=== PATIENT | female | born 1950 | race Caucasian/White ===

== ENCOUNTER 2017-09-12 12:08 | Emergency (ER) | payer BC, MEDICARE ==
--- NOTE | 2017-09-12 14:32 | RAD ---
PA AND LATERAL CHEST RADIOGRAPH: Date: 09-12-17 History: Cough, shortness of breath. Comparison: 07-08-15 FINDINGS: Cardiac silhouette and pulmonary vasculature are within normal limits. The lungs are clear. Degenerat aaron changes are seen in the spine. There has been no interval change from prior exam. IMPRESSION: No acute cardiopulmonary process. POS: [facility]
== END 2017-09-12 14:22 | disposition home or self-care (01) ==
LOC: ERS 12:08
DX: J20.9 Acute bronchitis, unspecified (principal); E78.5 Hyperlipidemia, unspecified; E78.2 Mixed hyperlipidemia; I10 Essential (primary) hypertension; J45.909 Unspecified asthma, uncomplicated; F41.9 Anxiety disorder, unspecified
CPT/HCPCS: 71046; 93005

== ENCOUNTER 2017-10-22 09:43 | Outpatient (CLI) | payer OTHER | END 2017-10-22 09:44 | disposition home or self-care (01) | LOC: DTY/OP 09:43 | PROVIDERS: ATTEND Surgery | DX: I10 Essential (primary) hypertension (principal) | CPT/HCPCS: 97802 ==

== ENCOUNTER 2017-12-20 09:30 | Inpatient (IN) | payer BC, MEDICARE ==
[2017-12-20 10:12] VITALS: BMI 48.2
[2018-01-02] MEDS ORDERED: CEFAZOLIN/Water 2 GM/20 ML SYRINGE ONE (06:28)
[2018-01-02] MEDS ORDERED: Heparin 5,000 UNITS/ML VIAL ONE (06:29)
[2018-01-02] MEDS ORDERED: Albuterol Sulfate 2.5 mg/3 ml Neb ONE (06:30)
[2018-01-02] MEDS ORDERED: Bupivacaine/Epinephrine 0.25% 30 ML VIAL ONE (06:40)
[2018-01-02] MEDS ORDERED: Fentanyl 250 MCG/5 ML VIAL ONE (06:46)
[2018-01-02] MEDS ORDERED: Scopolamine 1.5 mg/72 hour Patch ONE (06:47)
[2018-01-02] MEDS ORDERED: Midazolam HCl 2 mg/2 ml Vial ONE ×2 (07:14→08:47)
[2018-01-02] MEDS ORDERED: Promethazine HCl 25 MG/ML VIAL SLOW IVP PRN (08:36)
[2018-01-02] MEDS ORDERED: Promethazine HCl 25 MG/ML VIAL IM PRN ×3 (08:36→09:00)
[2018-01-02] MEDS ORDERED: Meperidine HCl/PF 25 MG/ML VIAL SLOW IVP PRN (08:36)
[2018-01-02] MEDS ORDERED: Hydrocodone-Acetamin 15 ML UDCUP PO PRN (08:41)
[2018-01-02] MEDS ORDERED: Dextrose 5% in Water 1,000 ML IV PRN (08:41)
[2018-01-02] MEDS ORDERED: hydrALAZINE 20 MG/ML VIAL SLOW IVP PRN (08:41)
[2018-01-02] MEDS ORDERED: diphenhydrAMINE 50 MG/ML VIAL IVP PRN ×2 (08:41→09:00)
[2018-01-02] MEDS ORDERED: Dextrose 50% Abboject 50 ML SYRINGE SLOW IVP PRN (08:41)
[2018-01-02] MEDS ORDERED: Ondansetron HCl/PF 4 MG/2 ML Vial IVP PRN ×2 (08:41→09:00)
[2018-01-02] MEDS ORDERED: Fentanyl 5000 MCG/250 ML CADD IVPB PRN (09:00)
[2018-01-02] MEDS ORDERED: Communication Order-Pharmacy FS SCH (09:00)
[2018-01-02] MEDS ORDERED: diphenhydrAMINE 25 MG CAP PO PRN (09:00)
[2018-01-02] MEDS ORDERED: diphenhydrAMINE 50 MG/ML VIAL IM PRN (09:00)
[2018-01-02] MEDS ORDERED: Naloxone HCl 0.4 mg/ml Vial IV PRN (09:00)
[2018-01-02] MEDS ORDERED: Zolpidem Tartrate 5 MG TAB PO PRN (09:00)
[2018-01-02] MEDS ORDERED: fentaNYL Citrate/PF 2,000 MCG in Sodium Chloride 0.9% 60 ML IV PRN (09:15)
[2018-01-02] MEDS ORDERED: Fentanyl 100 MCG/2 ML VIAL ONE (09:29)
[2018-01-02] MEDS ORDERED: Promethazine HCl 25 MG/ML VIAL ONE (09:30)
--- NOTE | 2018-01-02 09:32 | OP ---
DATE OF PROCEDURE: 01/02/2018 PREOPERATIVE DIAGNOSIS: Morbid obesity. SURGEON: Karlos Farmer M.D. [employer] LIAISON: Adwoa Oliveira, certified paralegal. PROCEDURE: Laparoscopic sleeve gastrectomy, esophagogastroscopy. INDICATIONS: This is a 67-year-old female, morbidly obese, who has attempted multiple weight loss pr ograms without success. In fact, she had a lap band that had to be removed for slippage. FINDINGS: A 38-Indian bougie used. PROCEDURE: After an informed consent was obtained, the patient was taken to the operating room and g iven general endotracheal anesthesia. She was placed in the supine position. The abdomen was preppe d and draped in usual fashion. Local anesthesia infiltrated subcutaneously and deep. A 12 mm incisi on was performed approximately 8 inches below the xiphoid slightly to the left. Veress needle insert ed. Drop test performed. Pneumoperitoneum was created to a volume of 2 liters of carbon dioxide. U tilizing a bladeless 12 mm trocar and 0 degree laparoscope direct visual entry in the abdominal cavit y was performed. Pneumoperitoneum was created to a pressure of 15 mmHg. The patient placed in steep reverse Trendelenburg position. Nathansen liver retractor inserted. Left lobe of liver retracted s uperiorly. The pylorus identified, a 12 mm port placed on the right beneath it and two 12s placed le ft subcostal. The omentum was taken off the greater curvature utilizing the LigaSure 5 cm from the p ylorus. Short gastrics divided with the LigaSure. Now there was moderate adhesions from the previou s lap band. These were all taken down to unfold the stomach and clean it up to expose the crura and the esophagus. I did not see any significant hiatal hernia. The 38-Indian bougie was then inserted directed into the antrum. The linear 60 mm green load stapler used to divide the antrum to the bougi e, gold load x2 along the bougie. Two Blue loads, another gold load and then a final blue load used to divide the stomach along the bougie. Intraoperative endoscopy was performed. The video endoscope inserted under direct vision and advanced into the sleeve. Staple line inspected. There was no ble eding. Staple line then tested by inflating the new stomach with pressurized air and water. There w as no air leak. Stomach decompressed. Scope removed. Remnant stomach removed from the abdomen thro ugh the left lateral port site. The fascia closed with 0 Vicryl suture and the GraNee needle. Troca rs and retractors removed. Hemostasis assured. Skin closed with interrupted 4-0 Rapide. Dermabond applied. The patient tolerated the procedure well and was transferred to recovery in good condition. Sponge and needle count verified correct x2.
[2018-01-02] MEDS ORDERED: hydrALAZINE 20 MG/ML VIAL ONE (09:54)
[2018-01-02] MEDS: Enoxaparin Sodium 40 MG/0.4 ML SYRINGE SC SCH (11:05)
[2018-01-02] MEDS: Pantoprazole 40 MG VIAL IVP SCH (11:06)
[2018-01-02] MEDS: Ketorolac Tromethamine 30 MG/ML VIAL IVP SCH ×3 (13:13→23:55)
[2018-01-02] MEDS: CEFAZOLIN/Water 2 GM/20 ML SYRINGE SLOW IVP SCH ×2 (13:13→20:39)
[2018-01-02] MEDS ORDERED: Iopamidol 370 76% 50 ML VIAL FS ONE (13:37)
[2018-01-02] MEDS ORDERED: Esmolol 100 MG/10 ML VIAL ONE (14:26)
[2018-01-02] MEDS ORDERED: PROPOFOL 200 MG/20 ML VIAL ONE (14:26)
[2018-01-02] MEDS ORDERED: Dexamethasone 20 MG/5 ML VIAL ONE (14:26)
[2018-01-02] MEDS ORDERED: Lidocaine 1% PF 5 ML VIAL ONE (14:26)
[2018-01-02] MEDS ORDERED: Glycopyrrolate 0.2 MG/ML 5 ML SYRINGE ONE (14:26)
[2018-01-02] MEDS ORDERED: diphenhydrAMINE 50 MG/ML VIAL ONE (14:26)
[2018-01-02] MEDS ORDERED: Ketorolac Tromethamine 30 MG/ML VIAL ONE (14:26)
[2018-01-02] MEDS ORDERED: PHENYLEPHRINE-NS 100 MCG/ML 10 ML SYRINGE ONE (14:26)
[2018-01-02] MEDS ORDERED: ePHEDrine/0.9% NaCl/PF SYRINGE 50 mg/10 ml ONE (14:26)
[2018-01-02] MEDS ORDERED: Labetalol 100 MG/20 ML MDV ONE (14:26)
[2018-01-02] MEDS: D5 1/2 NS w/20 mEq KCL 1,000 ML IV SCH ×2 (14:43→17:08)
--- NOTE | 2018-01-02 16:31 | CT ---
ABDOMEN CT WITHOUT CONTRAST: 01/02/18 HISTORY: Status post gastric sleeve this morning. Tachycardia. Shortness of breath. Low O2 saturation. COMPARISON: None. TECHNIQUE: Abdomen CT is performed without IV contrast. Oral contrast is administered. Coronal reformatted image s are submitted for interpretation. FINDINGS: ABDOMEN CT: Lung bases are clear. There is a small amount of pneumoperitoneum, compatible with patient's surgical history. Additional Subcu air is noted along the anterior left subcu fat. Contrast administered does opacify the distal thoracic esophagus and gastric remnant. No definite janice k or extravasation. Contrast is noted in the proximal small bowel loops. Solid organs are grossly unremarkable. There is an incompletely evaluated fluid collection in the lydia tral subcutaneous fat at the midline measuring 7.0 x 2.2 cm. There is atherosclerosis of the aorta. Gallbladder is surgically absent. Along the lateral margin of the right hepatic lobe, There appears to be metallic density which has a somewhat rectangular appearance. An iatrogenic focus is favored. The etiology is uncertain. IMPRESSION: 1. Nonspecific fluid collection in the ventral subcutaneous fat, incompletely evaluated. 2. No evidence of leak or extravasation. 3. Radiopaque foreign body, presumed to be iatrogenic along the lateral aspect of the right hepa tic lobe. Results of the study discussed with Dr. Farmer, 01/02/18 at 4:07 p.m. Code CR POS: [facility]
[2018-01-02 17:04] LABS: Hemoglobin 13.8 g/dL (12.0-16.0)
[2018-01-02] MEDS ORDERED: Sodium Chloride 0.9% 500 ML IVPB SCH (17:45)
[2018-01-02] MEDS ORDERED: PROVENTIL INHALER 6.7 G (200 INHALATIONS) INH PRN (18:27)
[2018-01-02] MEDS: Mometasone/Formoterol 120 PUFF INHALER INH SCH (19:56)
[2018-01-03] MEDS: D5 1/2 NS w/20 mEq KCL 1,000 ML IV SCH ×2 (02:27→10:04)
[2018-01-03 06:08] LABS: #Lymphocytes 2.6 thou/uL (1.20-3.40); #Monocytes 1.2 thou/uL (0.11-0.59); #Neutrophils 11.1 thou/uL (1.40-6.50); %Basophils 0.2 % (0.0-1.0); %Eosinophils 0.3 % (0.0-10.0); %Lymphocytes 17.3 % (21.0-51.0); %Monocytes 8.1 % (0.0-10.0); %Neutrophils 74.1 % (42.0-75.0); Hemoglobin 12.6 g/dL (12.0-16.0); Mean Corpuscular HGB CONC 32.9 g/dL (32.0-36.0); Mean Corpuscular Hemoglobin 29.3 pg (27.0-31.0); Mean Corpuscular Volume 89.2 fl (81.0-99.0); Mean Platelet Volume 6.9 fL (7.4-10.4); Platelet Count 336 thou/uL (130-400); RBC Distribution Width 13.1 % (11.5-14.5)
[2018-01-03 06:18] LABS: Anion Gap 7 mmol/L (10-20); BUN (Urea Nitrogen) 17 mg/dL (9.8-20.1); Calc. Creatinine Clearance 164 mL/min (70-130); Calcium 9.7 mg/dL (7.8-10.44); Carbon Dioxide 30 mmol/L (23-31); Chloride 109 mmol/L (98-107); Estimated GFR-MDRD 84; Glucose 115 mg/dL (80-115); Potassium 5.2 mmol/L (3.5-5.1); Sodium 141 mmol/L (136-145)
[2018-01-03] MEDS: Ketorolac Tromethamine 30 MG/ML VIAL IVP SCH (06:18)
[2018-01-03 07:52] VITALS: BP 124/71; TEMP 97.9
[2018-01-03] MEDS: Enoxaparin Sodium 40 MG/0.4 ML SYRINGE SC SCH (08:17)
[2018-01-03] MEDS: Pantoprazole 40 MG VIAL IVP SCH (08:17)
[2018-01-03] MEDS: Mometasone/Formoterol 120 PUFF INHALER INH SCH (10:17)
--- NOTE | 2018-01-03 11:49 | DIS ---
DATE OF ADMISSION: 01/02/2018 DATE OF DISCHARGE: 01/03/2018 DISCHARGE DIAGNOSIS: Morbid obesity. PROCEDURES DURING ADMISSION: Laparoscopic sleeve gastrectomy, intraoperative esophagogastroscopy, po stoperative CT scan of the abdomen and pelvis. HOSPITAL COURSE: The patient was taken to the operating room and given general endotracheal anesthes ia. She was placed in the supine position, abdomen was prepped and draped in usual fashion. She und erwent a laparoscopic sleeve gastrectomy with intraoperative esophagogastroscopy. Postoperatively, s he developed tachycardia which was concerning, so she was sent down for a CT scan with oral contrast. This showed no leak, but it showed a retained foreign body along the right lobe of the liver, turns out she had a previous emergency removal of a lap band about 12-15 years ago and evidently the buckl e was left in place, but she has tolerated it well. She elected not to go back and to take this out since it has been there for 12-15 years. After the swallow, she did fine. Her tachycardia resolved with a bolus of fluid. She was started on liquid. She is tolerating them well. She is now discharg ed home in good condition, tolerating liquids well. Pain controlled on p.o. medications. She is dis charged home on hydrocodone elixir and Zofran. She will follow up with me in 2 weeks.
== END 2018-01-03 11:21 | disposition home or self-care (01) | DRG 621 ==
LOC: SURG A 01-02 06:09 → SURG B 01-02 10:23
PROVIDERS: ADMIT Surgery; ATTEND Surgery
PROC: 0DB64Z3 Excision of Stomach, Percutaneous Endoscopic Approach, Vertical (ICD-10-PCS; principal; 2018-01-02)
DX: E66.01 Morbid (severe) obesity due to excess calories (principal); Z68.42 Body mass index [BMI] 45.0-49.9, adult; Z79.899 Other long term (current) drug therapy; I10 Essential (primary) hypertension; Z91.040 Latex allergy status; M06.9 Rheumatoid arthritis, unspecified; Z87.891 Personal history of nicotine dependence; Z88.5 Allergy status to narcotic agent; Z88.2 Allergy status to sulfonamides; E78.5 Hyperlipidemia, unspecified
CPT/HCPCS: 36415; 74150; 80048; 85014; 85018; 85025; 88307; 88312; 94760; C9113; J0131; J0360; J1100; J1200; J1644; J1650; J1885; J2001; J2250; J2405; J2550; J2704; J3010; J7050; J7611

== ENCOUNTER 2017-12-20 09:43 | Outpatient (CLI) | payer BC, MEDICARE ==
[2017-12-20 11:38] LABS: #Basophils 0.1 thou/uL (0.0-0.2); #Eosinphils 0.3 thou/uL (0.0-0.7); #Lymphocytes 2.6 thou/uL (1.20-3.40); #Monocytes 0.7 thou/uL (0.11-0.59); #Neutrophils 6.5 thou/uL (1.40-6.50); %Basophils 0.7 % (0.0-1.0); %Eosinophils 3.2 % (0.0-10.0); %Lymphocytes 25.5 % (21.0-51.0); %Monocytes 7.2 % (0.0-10.0); %Neutrophils 63.4 % (42.0-75.0); Hemoglobin 14.1 g/dL (12.0-16.0); Mean Platelet Volume 6.6 fL (7.4-10.4); Platelet Count 394 thou/uL (130-400); RBC Distribution Width 12.8 % (11.5-14.5); Red Blood Cell (RBC) Count 4.87 mill/uL (4.20-5.40); White Blood Cell (WBC) Count 10.2 thou/uL (4.8-10.8)
[2017-12-20 11:59] LABS: Hemoglobin A1c 5.7 % (4.0-6.0)
[2017-12-20 12:04] LABS: ALT (SGPT) 29 U/L (8-55); AST (SGOT) 25 U/L (5-34); Albumin 4.3 g/dL (3.4-4.8); Alkaline Phosphatase 85 U/L (40-150); Anion Gap 13 mmol/L (10-20); BUN (Urea Nitrogen) 21 mg/dL (9.8-20.1); Bilirubin, Direct 0.2 mg/dL (0.1-0.3); Bilirubin, Total 0.4 mg/dL (0.2-1.2); Calc. Creatinine Clearance 0 mL/min (70-130); Calcium 10.3 mg/dL (7.8-10.44); Carbon Dioxide 27 mmol/L (23-31); Chloride 101 mmol/L (98-107); Estimated GFR-MDRD 79; Globulin 3.3 g/dL (2.4-3.5); Glucose 107 mg/dL (80-115); Potassium 4.3 mmol/L (3.5-5.1); Protein, Total 7.6 g/dL (6.0-8.3); Sodium 137 mmol/L (136-145)
== END 2017-12-20 09:44 | disposition home or self-care (01) ==
LOC: LABBT 09:43
PROVIDERS: ATTEND Surgery
DX: Z01.812 Encounter for preprocedural laboratory examination (principal); E66.01 Morbid (severe) obesity due to excess calories
CPT/HCPCS: 80053; 80076; 83036; 85025

== ENCOUNTER 2024-08-03 01:54 | Inpatient (IN) | payer BC, MEDICARE ==
[2024-08-03 02:28] LABS: #Basophils 0.05 10x3/uL (0.0-0.2); %Basophils 0.4 % (0.0-1.0); %Eosinophils 2.5 % (0.0-10.0); %Monocytes 6.6 % (0.0-10.0); %Neutrophils 73.1 % (42.0-75.0); Hematocrit 37.1 % (36.0-47.0); Hemoglobin 11.9 g/dL (12.0-16.0); Mean Corpuscular HGB CONC 32.1 g/dL (32.0-36.0); Mean Corpuscular Hemoglobin 27.7 pg (27.0-31.0); Mean Corpuscular Volume 86.5 fL (78.0-98.0); Mean Platelet Volume 8.6 fL (7.4-10.4); Platelet Count 356 10x3/uL (130-400); RBC Distribution Width 14.5 % (11.5-14.5); Red Blood Cell (RBC) Count 4.29 mill/uL (4.20-5.40)
[2024-08-03] MEDS ORDERED: Ondansetron PF 4 MG/2 ML Vial ONE (02:41)
[2024-08-03 02:54] LABS: ALT (SGPT) 14 U/L (8-55); AST (SGOT) 20 U/L (5-34); Albumin 3.2 g/dL (3.4-4.8); Alkaline Phosphatase 96 U/L (40-110); Anion Gap 18 mmol/L (10-20); BUN (Urea Nitrogen) 14 mg/dL (9.8-20.1); Bilirubin, Total 0.3 mg/dL (0.2-1.2); Calc. Creatinine Clearance 0 mL/min (70-130); Calcium 9.8 mg/dL (7.8-10.44); Carbon Dioxide 20 mmol/L (23-31); Chloride 105 mmol/L (98-107); Estimated GFR 74; Globulin 3.9 g/dL (2.4-3.5); Glucose 168 mg/dL (83-110); Potassium 4.2 mmol/L (3.5-5.1); Protein, Total 7.1 g/dL (5.8-8.1); Sodium 139 mmol/L (136-145)
[2024-08-03 02:59] LABS: Troponin I 0.032 ng/mL (< 0.028)
[2024-08-03 05:07] LABS: Troponin I 0.074 ng/mL (< 0.028)
[2024-08-03] MEDS ORDERED: Metoclopramide HCl 10 MG (2 mL) VIAL ONE (05:08)
[2024-08-03] MEDS ORDERED: Aspirin Chewable 81 MG TAB ONE (05:24)
[2024-08-03] MEDS ORDERED: Enoxaparin 100 MG (1 mL) SYRINGE ONE ×2 (05:52→06:02)
[2024-08-03] MEDS ORDERED: Enoxaparin 30 MG (0.3 mL) SYRINGE ONE (05:52)
[2024-08-03 06:46] LABS: Phosphorus 3.1 mg/dL (2.3-4.7)
[2024-08-03 06:48] LABS: Magnesium 1.9 mg/dL (1.6-2.6)
[2024-08-03] MEDS ORDERED: Ondansetron PF 4 MG/2 ML Vial IVP PRN (08:09)
[2024-08-03] MEDS ORDERED: Bisacodyl 5 MG TAB PO PRN (08:09)
[2024-08-03] MEDS ORDERED: Iopamidol-370 76% 500 ML MDV (1 ML CHARGE) ONE (09:27)
[2024-08-03] MEDS: methylPREDNISolone Sod Succ 40 MG VIAL IVP SCH ×2 (10:07→13:17)
[2024-08-03 10:20] VITALS: BMI 38.9
[2024-08-03] MEDS: Ipratropium/Albuterol 3 ML NEB NEB SCH ×2 (11:13→11:15)
[2024-08-03 12:27] LABS: Troponin I 0.095 ng/mL (< 0.028)
[2024-08-03] MEDS: Ipratropium/Albuterol 3 ML NEB NEB PRN (16:04)
[2024-08-03] MEDS: Zolpidem Tartrate 5 MG TAB PO SCH (21:10)
[2024-08-03] MEDS: Acetaminophen 325 MG TAB PO PRN (23:03)
[2024-08-03] MEDS: Lorazepam 2 MG/ML VIAL SLOW IVP SCH (23:51)
[2024-08-04] MEDS: Lorazepam 2 MG/ML VIAL SLOW IVP SCH (04:35)
[2024-08-04 08:04] LABS: #Basophils Less than 0.03 10x3/uL (0.0-0.2); #Eosinophils Less than 0.03 10x3/uL (0.0-0.7); %Basophils 0.1 % (0.0-1.0); %Lymphocytes 8.3 % (21.0-51.0); %Monocytes 2.9 % (0.0-10.0); %Neutrophils 88.3 % (42.0-75.0); Hematocrit 37.9 % (36.0-47.0); Mean Corpuscular HGB CONC 31.7 g/dL (32.0-36.0); Mean Corpuscular Hemoglobin 27.6 pg (27.0-31.0); Mean Corpuscular Volume 87.1 fL (78.0-98.0); Platelet Count 467 10x3/uL (130-400); RBC Distribution Width 14.6 % (11.5-14.5); Red Blood Cell (RBC) Count 4.35 mill/uL (4.20-5.40)
[2024-08-04] MEDS: DULoxetine 60 MG CAP PO SCH (08:24)
[2024-08-04] MEDS: Gabapentin 300 MG CAP PO SCH (08:24)
[2024-08-04] MEDS: Atorvastatin Calcium 20 MG TAB PO SCH (08:24)
[2024-08-04] MEDS: Lisinopril 10 MG TAB PO SCH (08:26)
[2024-08-04] MEDS ORDERED: Non-Formulary Item 1 EACH (Lisinopril [Lisinopril] 30 MG Tablet) PO SCH (09:00)
[2024-08-04] MEDS ORDERED: Non-Formulary Item 1 EACH (Tiotropium Bromide [Spiriva Handihaler] 18 MCG Cap.W.Dev) INH SCH (09:00)
[2024-08-04] MEDS: Tiotropium Bromide 4 GM INHALER IH SCH (09:21)
[2024-08-04 09:25] LABS: Anion Gap 17 mmol/L (10-20); BUN (Urea Nitrogen) 21 mg/dL (9.8-20.1); Calc. Creatinine Clearance 99 mL/min (70-130); Carbon Dioxide 21 mmol/L (23-31); Chloride 105 mmol/L (98-107); Estimated GFR 72; Glucose 156 mg/dL (83-110); Potassium 4.4 mmol/L (3.5-5.1); Sodium 139 mmol/L (136-145)
[2024-08-04] MEDS: cefTRIAXone\\ROCEPHIN 1 GM in Sodium Chloride 0.9% 100 ML IVPB SCH (11:18)
[2024-08-04] MEDS: Sodium Chloride 0.9% 1,000 ML IV SCH (15:27)
[2024-08-05] MEDS: Pantoprazole 40 MG GRANULES PACKET PO SCH (08:54)
[2024-08-05 10:20] LABS: Troponin I 0.079 ng/mL (< 0.028)
[2024-08-05] MEDS: hydrOXYzine 25 MG TAB PO PRN (14:28)
[2024-08-05] MEDS: Mirtazapine 15 MG TAB PO SCH (20:32)
[2024-08-06] MEDS: Carvedilol 25 MG TAB PO SCH (08:39)
[2024-08-06] MEDS: SPIRIVA HANDIHALER 18 MCG INH SCH (08:46)
[2024-08-06 09:13] LABS: #Basophils Less than 0.03 10x3/uL (0.0-0.2); #Eosinophils Less than 0.03 10x3/uL (0.0-0.7); %Basophils 0.1 % (0.0-1.0); %Lymphocytes 6.4 % (21.0-51.0); %Monocytes 5.6 % (0.0-10.0); %Neutrophils 87.5 % (42.0-75.0); Hematocrit 37.7 % (36.0-47.0); Hemoglobin 11.9 g/dL (12.0-16.0); Mean Corpuscular HGB CONC 31.6 g/dL (32.0-36.0); Mean Corpuscular Hemoglobin 27.7 pg (27.0-31.0); Mean Corpuscular Volume 87.9 fL (78.0-98.0); Mean Platelet Volume 9.4 fL (7.4-10.4); Platelet Count 417 10x3/uL (130-400); RBC Distribution Width 14.8 % (11.5-14.5); Red Blood Cell (RBC) Count 4.29 mill/uL (4.20-5.40)
[2024-08-06 09:30] LABS: Anion Gap 12 mmol/L (10-20); BUN (Urea Nitrogen) 25 mg/dL (9.8-20.1); Calc. Creatinine Clearance 109 mL/min (70-130); Calcium 9.5 mg/dL (7.8-10.44); Carbon Dioxide 25 mmol/L (23-31); Chloride 104 mmol/L (98-107); Estimated GFR 81; Glucose 141 mg/dL (83-110); Potassium 4.1 mmol/L (3.5-5.1); Sodium 137 mmol/L (136-145)
[2024-08-06] MEDS: Spironolactone 25 MG TAB PO SCH (14:23)
[2024-08-06] MEDS ORDERED: hydrALAZINE 20 MG/ML VIAL SLOW IVP PRN (16:52)
[2024-08-06] MEDS: Furosemide 20 MG (2 mL) VIAL SLOW IVP SCH (17:41)
[2024-08-06] MEDS: methylPREDNISolone Sod Succ 40 MG VIAL IVP SCH (20:19)
[2024-08-06] MEDS: Nebivolol HCl 5 MG TAB PO SCH (20:21)
[2024-08-07 06:14] LABS: #Basophils Less than 0.03 10x3/uL (0.0-0.2); #Eosinophils Less than 0.03 10x3/uL (0.0-0.7); %Basophils 0.1 % (0.0-1.0); %Eosinophils 0.1 % (0.0-10.0); %Lymphocytes 14.9 % (21.0-51.0); %Monocytes 10.4 % (0.0-10.0); %Neutrophils 74.2 % (42.0-75.0); Hematocrit 37.4 % (36.0-47.0); Hemoglobin 12.1 g/dL (12.0-16.0); Mean Corpuscular HGB CONC 32.4 g/dL (32.0-36.0); Mean Corpuscular Hemoglobin 28.3 pg (27.0-31.0); Mean Corpuscular Volume 87.6 fL (78.0-98.0); Mean Platelet Volume 9.3 fL (7.4-10.4); Platelet Count 422 10x3/uL (130-400); RBC Distribution Width 14.6 % (11.5-14.5); Red Blood Cell (RBC) Count 4.27 mill/uL (4.20-5.40)
[2024-08-07 06:38] LABS: Anion Gap 10 mmol/L (10-20); BUN (Urea Nitrogen) 27 mg/dL (9.8-20.1); Calc. Creatinine Clearance 112 mL/min (70-130); Calcium 9.2 mg/dL (7.8-10.44); Carbon Dioxide 32 mmol/L (23-31); Chloride 101 mmol/L (98-107); Estimated GFR 84; Glucose 109 mg/dL (83-110); Potassium 4.5 mmol/L (3.5-5.1); Sodium 138 mmol/L (136-145)
[2024-08-07] MEDS: Spironolactone 25 MG TAB PO SCH (08:27)
[2024-08-07] MEDS: Empagliflozin 10 MG TAB PO SCH (17:44)
[2024-08-07] MEDS: Furosemide 20 MG (2 mL) VIAL SLOW IVP SCH (17:45)
[2024-08-08 05:34] LABS: #Basophils Less than 0.03 10x3/uL (0.0-0.2); #Eosinophils Less than 0.03 10x3/uL (0.0-0.7); %Basophils 0.1 % (0.0-1.0); %Eosinophils 0.2 % (0.0-10.0); %Lymphocytes 15.4 % (21.0-51.0); %Neutrophils 76.9 % (42.0-75.0); Hematocrit 43.6 % (36.0-47.0); Hemoglobin 13.8 g/dL (12.0-16.0); Mean Corpuscular HGB CONC 31.7 g/dL (32.0-36.0); Mean Corpuscular Hemoglobin 27.3 pg (27.0-31.0); Mean Corpuscular Volume 86.2 fL (78.0-98.0); Mean Platelet Volume 9.7 fL (7.4-10.4); Platelet Count 432 10x3/uL (130-400); RBC Distribution Width 14.6 % (11.5-14.5); Red Blood Cell (RBC) Count 5.06 mill/uL (4.20-5.40)
[2024-08-08 05:51] LABS: Anion Gap 12 mmol/L (10-20); BUN (Urea Nitrogen) 31 mg/dL (9.8-20.1); Calc. Creatinine Clearance 115 mL/min (70-130); Calcium 9.7 mg/dL (7.8-10.44); Carbon Dioxide 28 mmol/L (23-31); Chloride 100 mmol/L (98-107); Estimated GFR 87; Glucose 121 mg/dL (83-110); Potassium 4.4 mmol/L (3.5-5.1); Sodium 136 mmol/L (136-145)
[2024-08-08 07:52] VITALS: TEMP 98.2
[2024-08-08] MEDS: Empagliflozin 10 MG TAB PO SCH (08:27)
[2024-08-08 08:28] VITALS: BP 142/66
== END 2024-08-08 11:27 | disposition home or self-care (01) | DRG 871 ==
LOC: ERS 01:54 → OBS 08:18 → OBSVTOIN 08-04 09:21
PROVIDERS: ADMIT Internal Medicine; ATTEND Internal Medicine
DX: A41.9 Sepsis, unspecified organism (principal); J18.9 Pneumonia, unspecified organism; J96.01 Acute respiratory failure with hypoxia; J45.901 Unspecified asthma with (acute) exacerbation; I24.89 Other forms of acute ischemic heart disease; E78.5 Hyperlipidemia, unspecified; I10 Essential (primary) hypertension; R91.8 Other nonspecific abnormal finding of lung field; E66.9 Obesity, unspecified; F41.9 Anxiety disorder, unspecified; Z88.2 Allergy status to sulfonamides; Z88.5 Allergy status to narcotic agent; Z90.49 Acquired absence of other specified parts of digestive tract; Z79.899 Other long term (current) drug therapy; Z68.38 Body mass index [BMI] 38.0-38.9, adult
CPT/HCPCS: 36415; 36416; 71045; 71275; 80048; 80053; 83735; 83880; 84100; 84145; 84484; 85025; 85379; 86141; 87040; 93005; 93010; 93306; 94640; 96372; 96374; 96375; 96376; G0378; J0696; J1650; J1940; J2060; J2405; J2765; J2919; J7620; Q9967